=== PATIENT | male | born 1940 ===

== ENCOUNTER → 2020-12-16 16:18 | Outpatient (CLI) | payer MEDICARE ==
[2016-06-06 09:01] VITALS: BMI 25.1
[~2020-12-16 16:18] MED LIST: CLARITIN 10 MG10 MG PO; COUMADIN5 MG PO; COZAAR50 MG PO; DEPAKOTE ER500 MG PO; FLOMAX0.4 MG PO; GLUCOPHAGE500 MG PO; K-DUR20 MEQ PO; LASIX40 MG PO; LIPITOR10 MG PO; SEROQUEL100 MG PO; SEROQUEL25 MG PO; SYNTHROID50 MCG PO; TOPROL XL50 MG PO; VITAMIN D31000 UNIT PO; ZOLOFT50 MG PO
[2020-12-16 16:54] LABS: BASOPHILS 0.2 % (0-2); EOSINOPHILS 2.4 % (0-7); HEMATOCRIT 37.3 % (42.0-54.0); HEMOGLOBIN 12.3 g/dL (13.5-17.5); LYMPHOCYTE ABS# 2.24 10x3/uL (1.32-3.57); LYMPHOCYTES 45.3 % (15-50); MCH 31.6 pg (26.0-34.0); MCV 95.9 fL (80.0-100.0); MONOCYTES 14.1 % (2-11); NEUTROPHIL ABS# 1.88 10x3/uL (1.78-5.38); PLATELET COUNT 176 10x3/uL (130-400); RBC 3.89 10x6/uL (4.20-6.10); RDW 14.3 % (11.5-14.5)
[2020-12-16 17:18] LABS: ALBUMIN 2.6 g/dL (3.4-5.0); ALKALINE PHOSPHATASE 54 U/L (30-120); ALT (SGPT) 8 U/L (10-68); BILIRUBIN - TOTAL 0.36 mg/dL (0.2-1.3); CALC OSMOLALITY 264 mosm/kg (275-300); CALCIUM 8.5 mg/dL (8.5-10.1); CARBON DIOXIDE 29.1 mmol/L (21.0-32.0); CHLORIDE - SERUM 97 mmol/L (98-107); CHOL - HDL RATIO 2.6 ratio (2.3-4.9); CHOLESTEROL, TOTAL 118 mg/dL (0-200); CREATININE - SERUM 0.7 mg/dL (0.6-1.3); HDL CHOLESTEROL 45 mg/dL (32-96); LDL CHOLESTEROL 59 mg/dL (0-100); LDL-HDL RATIO 1.3 ratio (1.5-3.5); MAGNESIUM - SERUM 1.9 mg/dL (1.8-2.4); POTASSIUM - SERUM 4.4 mmol/L (3.5-5.1); PROTEIN - SERUM 7.6 g/dL (6.4-8.2); SODIUM 131 mmol/L (136-145); T4 THYROXIN - FREE 0.88 ng/dL (0.76-1.46); THYROID STIMULATING HORMONE 3.42 uIU/mL (0.36-3.74); TRIGLYCERIDE 71 mg/dL (30-200); UREA NITROGEN 18 mg/dL (7-18); VALPROIC ACID (DEPAKOTE) 62.6 ug/mL (50.0-100.0); eGFR NON AFRICAN AMERICAN > 90 mL/min (90-120)
[2020-12-16 17:19] LABS: GLUCOSE 91 mg/dL (74-106)
[2020-12-17 09:13] LABS: MICROALBUMIN - URINE 9.9 ug/mL (Not Estab.)
== END | disposition home or self-care (01) ==
LOC: D.LABREF 16:18
PROVIDERS: ATTEND Internal Medicine
DX: E11.40 Type 2 diabetes mellitus with diabetic neuropathy, unspecified (principal); I11.0 Hypertensive heart disease with heart failure; I25.10 Atherosclerotic heart disease of native coronary artery without angina pectoris; N40.1 Benign prostatic hyperplasia with lower urinary tract symptoms